=== PATIENT | female | born 1965 | race African-American/Black ===

== ENCOUNTER 2016-10-02 09:05 | Emergency (ER) | payer MEDICARE, MEDICAID ==
[~2016-10-02] VITALS: Ht 170.2 cm; Wt 68.0 kg
[2016-10-02] MEDS ORDERED: Lidocaine 1% MPF 10mg/ml 5ml ONE (11:26)
--- NOTE | 2016-10-02 11:29 | Diagnostic Imaging Report ---
Indication: pain Findings: 3 views of the right hand were obtained. No fracture is identified. There is some narrowing of the interphalangeal joints of dissection specially in the third digit and first MCP joint. Impression: Osteoarthritis, mild in degree
[2016-10-02] MEDS ORDERED: Lidocaine 1% MPF 10mg/ml 5ml IM ONE (11:30)
[2016-10-02] MEDS ORDERED: KEFLEX500 MG ORAL (12:53)
--- NOTE | 2016-10-02 12:53 | Emergency Room Report ---
History of Present Illness General Chief Complaint: Upper Extremity Injury Source: Patient Present Illness HPI This patient presents with concern of a piece of glass in her palm. She states that she broke a window about a week ago and feels like there is a piece of glass in her hand. She denies fever or chills. She denies any other injuries. She has no other complaints. Allergies: Coded Allergies: No Known Allergies (Unverified , 10/02/16) Patient History Past Medical History: none Social History: Denies: alcohol use, drug use, smoking Immunizations: other - Tetanus not up to date. Reviewed Nursing Documentation: PMH: Agreed, PSxH: Agreed Nursing Documentation-PMH Past Medical History: No Stated History Review of Systems All Other Systems: negative except mentioned in HPI Physical Exam Vital Signs Date Time Temp Pulse Resp B/P Pulse Ox O2 Delivery O2 Flow Rate FiO2 10/02/16 09:08 98.4 85 18 129/75 97 Room Air Sp02 EP Interpretation: reviewed, normal General Appearance: no apparent distress, alert, GCS 15, non-toxic Head: normocephalic, atraumatic Eyes: bilateral eye PERRL, bilateral eye normal inspection ENT: hearing grossly normal, normal pharynx, no angioedema, normal voice Neck: full range of motion, supple/symm/no masses Respiratory: no respiratory distress, no retraction, no accessory muscle use, speaking full sentences Cardiovascular #1: regular rate, rhythm, no edema Gastrointestinal: normal inspection Rectal: deferred Musculoskeletal: back normal, gait/station normal, normal range of motion, other - Small less than 1 mm puncture wound on the right anterior hand just inferior to the third digit. Firm area/sharp area palpated through the skin. No erythema, warmth or swelling. Neurologic: alert, oriented x3, responsive, motor strength/tone normal, sensory intact, speech normal Psychiatric: judgement/insight normal, memory normal, mood/affect normal, no suicidal/homicidal ideation Skin: normal color, no rash, warm/dry, well hydrated Procedures Additional Procedure Procedure Narrative The area of foreign body was cleaned and irrigated. 2 mL of 1 percent lidocaine was infiltrated into the area over the foreign body. A tiny cross incision was made and over the area expected to find a foreign body. The foreign body was able to be localized but unfortunately I was unable to extract the foreign body from the hand. See medical decision-making. Medical Decision Making Diagnostic Impression: Primary Impression: Foreign body of hand, right, superficial ER Course This patient has a tiny triangular shaped foreign body about a millimeter in size in the soft tissue of her anterior right hand. The palpated and puncture wound area was anesthetized and a small incision was made with an 11 blade scalpel over the region of the foreign body. Unfortunately, the foreign body was unable to be removed as it kept slipping out of the grasp of the hemostat and tweezers. I did not want to excise any deeper or explore any further for concern I would cause damage to the tendons of the hand. There is no evidence of infection. The patient was instructed to follow up with a hand surgeon as he may need to remove the foreign body in an operating room. I will place the patient on a course of antibiotics as a prophylaxis for infection. The patient was given return precautions and followup instructions. Other X-Ray Diagnostic Results Other X-Ray Diagnostic Results : X-Ray Ordered: R. hand xray EP Interpretation: Yes Findings: other Number of Views: 3 Other Impression 1 mm triangular sized fb in the anterior st of the hand. Also tiny radiopaque fb in posterior hand. Last Vital Signs Date Time Temp Pulse Resp B/P Pulse Ox O2 Delivery O2 Flow Rate FiO2 10/02/16 09:08 98.4 85 18 129/75 97 Room Air Disposition: HOME, SELF-CARE Condition: Stable Referrals: NOT CHOSEN [facility]/,REFERRING (PCP) YURY HICKS D.O. October 02, 2016 12:53
[2016-10-02 13:18] VITALS: BP 129/75
== END 2016-10-02 13:19 | disposition home or self-care (01) ==
LOC: EMR 09:50
DX: S60.551A Superficial foreign body of right hand, initial encounter (principal); W25.XXXA Contact with sharp glass, initial encounter; W45.8XXA Other foreign body or object entering through skin, initial encounter; Y93.9 Activity, unspecified; Y99.9 Unspecified external cause status; Z28.3 Underimmunization status
CPT/HCPCS: 99283

== ENCOUNTER 2019-10-19 16:36 | Emergency (ER) | payer MEDICARE, MEDICAID ==
[~2019-10-19] VITALS: Ht 167.6 cm; Wt 54.4 kg
[~2019-10-19 16:36] MED LIST: KEFLEX500 MG ORAL
--- NOTE | 2019-10-19 16:47 | NUR ---
ED Nurse Note: Pt walked into ED w/ c/o "knot" in upper L back. Pt states she has had knot for a month but recently became very painful. No swelling or bruising present. Pt is alert and ox4, amb.
[2019-10-19 16:49] VITALS: BP 119/79
[2019-10-19] MEDS: Ketorolac 30mg Inj IM ONE ×2 (17:00→17:07)
[2019-10-19] MEDS ORDERED: Methocarbamol 750mg tab ORAL ONE (17:00)
--- NOTE | 2019-10-19 17:39 | Diagnostic Imaging Report ---
Indication: Upper back pain on the left Technique: Spiral acquisitions obtained through the thoracic spine. No IV contrast utilized. Multiplanar reconstructions were generated. Total dose length product 153 mGycm. CTDIvol(s) 4 mGy. Dose reduction achieved using automated exposure control Comparison: none Findings: Bony alignment is normal. Vertebral body heights are preserved. There is multilevel degenerative disc narrowing of the mid thoracic spine. No acute fractures. No significant disc bulge or protrusion, spinal stenosis, or neural foraminal stenosis. Bullous emphysema is seen within the bilateral lungs. Otherwise, the included extraspinal soft tissues are unremarkable. Impression: Mild multilevel disc degeneration No acute process Evidence of bullous emphysema The CT scanner at [facility] is accredited by the [employer] and the scans are performed using protocols designed to limit radiation exposure to as low as reasonably achievable to attain images of sufficient resolution adequate for diagnostic evaluation.
--- NOTE | 2019-10-19 18:01 | Emergency Room Report ---
History of Present Illness General Chief Complaint: General Complaint Source: Patient Present Illness HPI 54-year-old female with no symptom past medical history here complaining of painless muscle contraction in the upper back that noticed 1 month ago however it has been painful for 1 week. Patient reports that she exercises a lot and often feels the pain when exercising. Is the pain 10 out of 10. Denies any radiation. Has not taken medication for symptom relief. Denies any tingling numbness, chest pain, shortness of breath, headache and dizziness. No mass noted, patient elicits pain only when touching the affected area which appears to be muscle contraction and reports that it is worse when exercising and lifting arms and stretching back Allergies: Coded Allergies: No Known Allergies (Unverified , 10/02/16) COVID-19 Screening Contact w/high risk pt: No Recent Travel to affected area: No Experienced COVID-19 symptoms?: No COVID-19 Testing performed SHAFT TENDER: No Patient History Past Medical History: see triage record Past Surgical History: none Pertinent Family History: none Last Menstrual Period: na Now: No Immunizations: UTD Reviewed Nursing Documentation: PMH: Agreed; PSxH: Agreed Nursing Documentation-PMH Past Medical History: No Stated History Review of Systems All Other Systems: negative except mentioned in HPI Physical Exam Vital Signs Date Time Temp Pulse Resp B/P (MAP) Pulse Ox O2 Delivery O2 Flow Rate FiO2 10/19/19 16:40 98.6 66 17 121/72 (88) 98 Room Air 10/19/19 16:49 97 Sp02 EP Interpretation: reviewed, normal General Appearance: no apparent distress, alert, GCS 15, non-toxic Head: normocephalic, atraumatic Eyes: bilateral eye normal inspection, bilateral eye PERRL ENT: hearing grossly normal, normal pharynx, no angioedema, normal voice Neck: full range of motion, supple/symm/no masses Respiratory: chest non-tender, lungs clear, normal breath sounds, speaking full sentences Cardiovascular #1: regular rate, rhythm, no edema Gastrointestinal: non tender, soft Rectal: deferred Musculoskeletal: back normal, normal range of motion, no calf tenderness, non- tender, other - no mass noted Neurologic: alert, motor strength/tone normal, oriented x3, sensory intact, responsive, speech normal Psychiatric: judgement/insight normal, memory normal, mood/affect normal, no suicidal/homicidal ideation Skin: no rash Lymphatic: no adenopathy Medical Decision Making PA Attestation All my diagnosis and treatment plans were reviewed ad discussed with my supervising physician Dr. Mock Diagnostic Impression: Primary Impression: Thoracic myofascial strain ER Course 54-year-old female with no symptom past medical history here complaining of painless muscle contraction in the upper back that noticed 1 month ago however it has been painful for 1 week. Patient reports that she exercises a lot and often feels the pain when exercising. Is the pain 10 out of 10. Denies any radiation. Has not taken medication for symptom relief. Denies any tingling numbness, chest pain, shortness of breath, headache and dizziness.No mass noted , patient elicits pain only when touching the affected area which appears to be muscle contraction and reports that it is worse when exercising and lifting arms and stretching back Ddx considered but are not limited to : thoracic spine fracture, thoracic spine strain, thoracic spine sprain, radiculopathy., Malignancy Vital signs: are WNL, pt. is afebrile H&PE are most consistent with: No mass noted , thoracic strain, mass in thoracic region ORDERS: thoracic spine CT, Robaxin, Motrin, lidocaine patch ED INTERVENTIONS: Refuses Toradol shot, Robaxin DISCHARGE: At this time pt. is stable for d/c to home. Will provide printed patient care instructions, and any necessary prescriptions. Care plan and follow up instructions have been discussed with the patient prior to discharge. Take medication as directed, follow primary doctor, if worsening symptoms return to the emergency room Patient was evaluated in the context of the global COVID-19 pandemic, which necessitated consideration that the patient might be at risk for infection with the SARS-COV-2 virus that causes COVID-19. Institutional protocols and algorithms that pertain to the evaluation of patients at risk for COVID-19 are in a state of rapid change based on information relieved by multiple regulatory bodies including the CDC and the federal and state organizations. These policies and algorithms were followed during the patient's care in the ED. CT/MRI/US Diagnostic Results CT/MRI/US Diagnostic Results : Imaging Test Ordered: CT thoracic spine no contrast Impression Within normal limits Last Vital Signs Date Time Temp Pulse Resp B/P (MAP) Pulse Ox O2 Delivery O2 Flow Rate FiO2 5/27/20 16:49 98.6 70 16 119/79 98 Room Air 10/19/19 16:49 97 Disposition: HOME, SELF-CARE Condition: Stable Scripts Ibuprofen* (MOTRIN*) 600 Mg Tablet 600 MG ORAL FOUR TIMES A DAY, #30 TAB 0 Refills Prov: Caroline Cevallos 10/19/19 Lidocaine Patch* (Lidoderm Patch*) 1 Each Adh..patch 1 PATCH TOPIC DAILY, #30 PATCH Patch(es) may remain in place for up to 12 hours in any 24-hour period. Prov: Caroline Cevallos 10/19/19 Methocarbamol* (ROBAXIN-500*) 500 Mg Tablet 500 MG ORAL TID PRN for For Pain, #15 TAB 0 Refills Prov: Caroline Cevallos 10/19/19 Referrals: NOT CHOSEN [facility]/,REFERRING (PCP) Patient Instructions: Thoracic Strain, [id number] Additional Instructions: Take medication as directed, follow primary doctor, avoid strenuous physical activity, if worsening symptoms return to the emergency room Caroline Cevallos October 19, 2019 18:00
[2019-10-19] MEDS ORDERED: ROBAXIN-500MG ORAL (18:02)
[2019-10-19] MEDS ORDERED: IBUPROFEN600 M1 ORAL (18:02)
[2019-10-19] MEDS ORDERED: LIDODERM700 M1 TOPIC (18:02)
--- NOTE | 2019-10-19 18:23 | NUR ---
ER DISCHARGE NOTE: Patient is cleared to be discharged per ERMD, pt is aox4, on room air, with stable vital signs. pt was given dc and prescription instructions, pt was able to verbalize understanding, pt id band removed. pt is able to ambulate with steady gait. pt took all belongings.
[2019-10-19 18:24] VITALS: BP 120/76
== END 2019-10-19 18:25 | disposition home or self-care (01) ==
LOC: EMR 17:00
DX: S29.012A Strain of muscle and tendon of back wall of thorax, initial encounter (principal); X58.XXXA Exposure to other specified factors, initial encounter; Y92.9 Unspecified place or not applicable
CPT/HCPCS: 72128; 99284